=== PATIENT | male | born 1985 | race Caucasian/White ===

== ENCOUNTER 2024-07-10 07:16 | Day surgery (SDC) | payer SELFPAY ==
[~2024-07-10 07:16] MED LIST: Sodium Chloride 0.9% 10 ML Syringe FLUSH PRN; Sodium Chloride 0.9% 10 ML Syringe FLUSH SCH
[2024-07-10] MEDS ORDERED: fentaNYL 100 MCG/2 ML SDV IVPUSH PRN (07:22)
[2024-07-10] MEDS ORDERED: HYDROmorphone 0.5 MG/0.5 ML Syringe IVPUSH PRN (07:22)
[2024-07-10] MEDS ORDERED: Ondansetron 4 MG/2 ML SDV IVPUSH PRN (07:22)
[2024-07-10] MEDS ORDERED: propofoL 500 MG/50 ML 50 ML ONE ×2 (07:28→09:01)
[2024-07-10] MEDS ORDERED: Midazolam 1 MG/ML 2 ML SDV ONE (07:29)
[2024-07-10] MEDS ORDERED: fentaNYL 100 MCG/2 ML SDV ONE (07:29)
[2024-07-10] MEDS ORDERED: Ropivacaine 0.5% 5 MG/ML 30 ML SDV ONE (07:35)
[2024-07-10] MEDS: Lactated Ringers 1,000 ML IV SCH (07:35)
[2024-07-10] MEDS ORDERED: ceFAZolin 2 GM Vial ONE (07:35)
[2024-07-10] MEDS ORDERED: Ketamine 200 MG/20 ML MDV ONE (07:36)
[2024-07-10] MEDS ORDERED: Dexamethasone 4 MG/ML 5 ML MDV ONE (07:36)
[2024-07-10] MEDS ORDERED: dexmedeTOMIDine HCl 200 MCG/2 ML SDV ONE (07:36)
[2024-07-10] MEDS ORDERED: Sodium Chloride 0.9% 100 ML ONE (07:36)
[2024-07-10] MEDS ORDERED: Glycopyrrolate 0.2 MG/ML 2 ML SDV ONE (07:55)
[2024-07-10] MEDS ORDERED: Lactated Ringers 1,000 ML ONE (09:08)
== END 2024-07-10 11:00 | disposition home or self-care (01) ==
LOC: JD.SDS 07:16
PROVIDERS: ATTEND Orthopaedic Surgery
DX: S46.212A Strain of muscle, fascia and tendon of other parts of biceps, left arm, initial encounter (principal)
CPT/HCPCS: 24342; 64415; 76000; C1776; J0690; J1100; J1596; J2250; J2704; J2795; J3010; J3490; J7120; 01710; 64450